=== PATIENT | female | born 1935 | race Two or more races ===

== ENCOUNTER 2016-10-20 08:28 | Emergency (ER) | payer MEDICARE ==
[~2016-10-20] VITALS: Ht 149.9 cm; Wt 63.5 kg
--- NOTE | 2016-10-20 09:29 | RAD ---
Indication fall. Pain. AP oblique and lateral views of the right ankle were obtained. Similar AP oblique and lateral views of the right foot were also obtained. Views of the ankle show no acute finding. 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 Views of the foot are negative with regards to any acute bony finding. IMPRESSION: No acute finding seen involving the plantar ankle. Focus of osteonecrosis associated with the talus
[2016-10-20 09:45] VITALS: BP 151/72
[2016-10-20] MEDS ORDERED: ACET325T9 PO (09:46)
--- NOTE | 2016-10-20 09:46 | PHYS DOC ---
Past Medical History Past Medical History: CAD, Diabetes-Type II, Hypertension, [place] Past Surgical History: Coronary Bypass Surgery, Hysterectomy Alcohol Use: None Drug Use: None Adult General Chief Complaint Chief Complaint: ANKLE PROBLEM HPI HPI Patient is a pleasant 81-year-old female with multiple medical problems who presents with ankle pain that began yesterday after a fall from standing. She was walking down a set of stairs and at the third to the last while walking in socks she slipped and fell landing on her bottom but twisting her right ankle. At this time she had no pain or swelling. As the day went on her pain has increased. She has no laxity within the joint itself no knee pain no hip pain no other injuries. Patient said the pain is dull she is afraid to take anything other than aspirin that she's been told that all the medication will affect her aspirin affect on platelets. She is able to walk without issue she has no numbness and tingling in the ankle no prior injuries to this ankle throughout. Review of Systems Review of Systems Constitutional: Denies fever or chills [] Eyes: Denies change in visual acuity, redness, or eye pain [] HENT: Denies nasal congestion or sore throat [] Respiratory: Denies cough or shortness of breath [] Cardiovascular: No additional information not addressed in HPI [] GI: Denies abdominal pain, nausea, vomiting, bloody stools or diarrhea [] : Denies dysuria or hematuria [] Musculoskeletal: Complains only of right ankle and foot pain. Integument: Denies rash or skin lesions [] Neurologic: Denies headache, focal weakness or sensory changes [] Endocrine: Denies polyuria or polydipsia [] Allergies Allergies Allergies Coded Allergies Type Severity Reaction Last Updated Verified penicillin Allergy Intermediate unknown 12/23/14 No Physical Exam Physical Exam Vital signs recorded on the chart patient is mildly hypertensive. Constitutional: Well developed, well nourished, no acute distress, non-toxic appearance. [] Cardiovascular:Heart rate regular rhythm, no murmur [] Lungs & Thorax: Bilateral breath sounds clear to auscultation [] Skin: Warm, dry, no erythema, no rash. [] Extremities: He has some mild tenderness to palpation over the lateral aspect of the fifth metatarsal as well as over the lateral malleolus. There is no soft tissue swelling she has an anterior posterior draw tests are negative. Patient is no apparent laxity within the joint of the ankle. Patient has no deformity she has brisk capillary refill +2 brisk peripheral pulses at the dorsalis pedis and posterior tibialis on the right ankle. Normal sensation to light touch over the ankle itself. Neurologic: Alert and oriented X 3, normal motor function, normal sensory function, no focal deficits noted. [] Psychologic: Affect normal, judgement normal, mood normal. [] Current Patient Data Vital Signs Vital Signs Date Time Temp Pulse Resp B/P (MAP) Pulse Ox O2 Delivery O2 Flow Rate FiO2 10/20/16 08:53 98.2 77 18 164/74 (104) 98 Room Air 98.2 EKG EKG [] Radiology/Procedures Radiology/Procedures [] Review ankle film 3 view foot film 0900AM 10/20/[address] Cruz demonstrated no occult fracture no subcutaneous air no soft tissue swelling. Patient has osteoporosis is noted in the bone density of the foot itself. But no occult injury. Course & Med Decision Making Course & Med Decision Making Pertinent Labs and Imaging studies reviewed. (See chart for details) Is separate from a grade 1 ankle sprain and contusion to the lateral aspect of her foot. There is no obvious signs of fracture. Patient I went over the results of follow-up plan. She is reluctant to take Tylenol. She's been instructed to take and how to take it and that a lot affect her building use aspirin to protect her heart. [] Dragon Disclaimer Dragon Disclaimer This electronic medical record was generated, in whole or in part, using a voice recognition dictation system. Departure Departure Impression: Primary Impression: Ankle sprain Additional Impression: Contusion of foot, right Disposition: 01 HOME, SELF-CARE Condition: IMPROVED Referrals: LAN TURCIOS MD (PCP) Patient Instructions: Ankle Sprain Additional Instructions: Please return for any new or increasing symptoms or feel any question concerns. Scripts Acetaminophen (TYLENOL) 325 Mg Tablet 1-2 TAB PO QID, #60 TAB 2 Refills Prov: MARY CRUZ MD 10/20/16 Problem Qualifiers MARY CRUZ MD Oct 20, 2016 09:46
== END 2016-10-20 09:53 | disposition home or self-care (01) ==
LOC: ER 08:28
DX: S93.401A Sprain of unspecified ligament of right ankle, initial encounter (principal); S90.31XA Contusion of right foot, initial encounter; I10 Essential (primary) hypertension; E11.9 Type 2 diabetes mellitus without complications; I25.10 Atherosclerotic heart disease of native coronary artery without angina pectoris; I25.2 Old myocardial infarction; Z90.710 Acquired absence of both cervix and uterus; Z95.1 Presence of aortocoronary bypass graft; Z88.0 Allergy status to penicillin; W10.9XXA Fall (on) (from) unspecified stairs and steps, initial encounter; Y93.89 Activity, other specified; Y99.8 Other external cause status; Y92.89 Other specified places as the place of occurrence of the external cause
CPT/HCPCS: 73610; 73630; 99284

== ENCOUNTER → 2019-05-23 | Outpatient (CLI) | payer OTHER ==
[~2019-05-23] MED LIST: ACET325T9 PO
--- NOTE | 2019-05-25 12:55 | RAD ---
History: Routine Screening. Technique: Bilateral digital mammographic routine views were obtained with 2-D and 3-D technique including use of CAD - computer aided detection. Comparison: 05/23/2018, 05/23/2017.. Findings: Breast Tissue Density A : The breast tissue is predominately fatty replaced. There are no suspicious masses, microcalcifications or areas of architectural distortion. Impression: Negative mammogram. BI-RADS Category 1: Negative. Normal interval followup. . A mammogram does not have 100% sensitivity and therefore a negative imaging study should not delay further work up of a suspicious abnormality. The patient will receive a letter with the results in the mail. Patient information is entered into the reminder system with a target due date for the next screening mammogram. The patient will receive a reminder. "Our facility is accredited by the [employer] Mammography Program." BI-RADS 1 -- negative findings (within normal)
== END | disposition home or self-care (01) ==
LOC: MAMMO 09:42
PROVIDERS: ATTEND Family Medicine
DX: Z12.31 Encounter for screening mammogram for malignant neoplasm of breast (principal)
CPT/HCPCS: 77063; 77067

== ENCOUNTER → 2020-05-28 | Outpatient (CLI) | payer OTHER ==
--- NOTE | 2020-05-29 17:39 | RAD ---
DATE: 05/28/2020 10:27 AM EXAM: MAMMO JUAN SCREENING BILATERAL HISTORY: Screening COMPARISON: 05/23/2019 Bilateral CC and MLO views of the breasts were performed. Bilateral breast tomosynthesis was performed in CC and MLO projections. This study was interpreted with the benefit of Computerized Aided Detection (CAD). FINDINGS: Breast Density: FATTY The Breast Parenchyma is primarily fatty replaced. Breast parenchyma level density A. No suspicious masses, microcalcifications or architectural distortion is present to suggest malignancy in either breast. The visualized axillae are unremarkable. IMPRESSION: No mammographic evidence of malignancy. BI-RADS CATEGORY: 1 NEGATIVE RECOMMENDED FOLLOW-UP: 12M 12 MONTH FOLLOW-UP Annual screening mammography is recommended, unless clinically indicated sooner based on symptoms or change in physical exam. PQRS compliance statement: Patient information was entered into a reminder system with a target due date for the next mammogram. Mammography is a sensitive method for finding small breast cancers, but it does not detect them all and is not a substitute for careful clinical examination. A negative mammogram does not negate a clinically suspicious finding and should not result in delay in biopsying a clinically suspicious abnormality. "Our facility is accredited by the [employer] Mammography Program."
== END ==
LOC: MAMMO 10:05
PROVIDERS: ATTEND Family Medicine
DX: Z12.31 Encounter for screening mammogram for malignant neoplasm of breast (principal)
CPT/HCPCS: 77063; 77067

== ENCOUNTER → 2020-06-19 | Outpatient (CLI) | payer OTHER ==
--- NOTE | 2020-06-19 16:57 | CARD ---
MR#: [id number] Date of Study: 06/19/2020 Ordering Physician: PHILOMENA FAGAN, Referring Physician: PHILOMENA FAGAN, Tech: Ruthann Espinoza [facility] APPROVED REPORT EXAM: Two-dimensional and M-mode echocardiogram with Doppler and color Doppler. Other Information Quality : AverageHR: 73bpm Rhythm : NSR INDICATION CAD RISK FACTORS Hypertension Obesity Hyperlipidemia 2D DIMENSIONS RVDd2.8 (2.9-3.5cm)Left Atrium(2D)3.9 (1.6-4.0cm) IVSd1.1 (0.7-1.1cm)Aortic Root(2D)3.2 (2.0-3.7cm) LVDd3.5 (3.9-5.9cm)LVOT Diameter1.8 (1.8-2.4cm) PWd1.0 (0.7-1.1cm)LVDs2.2 (2.5-4.0cm) FS (%) 35.9 %SV32.9 ml LVEF(%)66.5 (>50%) Aortic Valve AoV Peak Greg.104.1cm/sAoV VTI26.6cm AO Peak GR.4.3mmHgLVOT Peak Greg.102.4cm/s AO Mean GR.2mmHgAVA (VMAX)2.56cm2 Mitral Valve MV E Eykjsbam85.9cm/sMV DECEL [id number] MV A Uwtfliyk768.0cm/sE/A Ratio0.8 Tricuspid Valve TR P. Kpagpgot445es/sTR Peak Gr.29mmHg Pulmonary Vein S1 Wrekyzyp54.8cm/sD2 Dmqucczj36.5cm/s PVa [id number] LEFT VENTRICLE The left ventricle is normal size. There is borderline concentric left ventricular hypertrophy. The l eft ventricular systolic function is normal and the ejection fraction is within normal range. Estima eliecer ejection fraction 55-60%. There is normal LV segmental wall motion. Transmitral Doppler flow camille geneva is Grade I-abnormal relaxation pattern. RIGHT VENTRICLE The right ventricle is normal size. There is normal right ventricular wall thickness. The right ventr icular systolic function is normal. ATRIA The left atrium size is normal. The right atrium size is normal. The interatrial septum is intact wit h no evidence for an atrial septal defect or patent foramen ovale as noted on 2-D or Doppler imaging. AORTIC VALVE The aortic valve is normal in structure and function. Doppler and Color Flow revealed no significant aortic regurgitation. There is no significant aortic valvular stenosis. MITRAL VALVE The mitral valve is normal in structure and function. There is no evidence of mitral valve prolapse. There is no mitral valve stenosis. Doppler and Color-flow revealed trace to mild mitral regurgitation . TRICUSPID VALVE The tricuspid valve is normal in structure and function. Doppler and Color Flow revealed mild tricusp id regurgitation. Estimated PAP 32 mmHg. There is no tricuspid valve stenosis. PULMONIC VALVE The pulmonary valve is normal in structure and function. Doppler and Color Flow revealed no pulmonic valvular regurgitation. GREAT VESSELS The aortic root is normal in size. The ascending aorta is normal in size. The IVC is normal in size a nd collapses >50% with inspiration. PERICARDIAL EFFUSION There is no evidence of significant pericardial effusion. Critical Notification Critical Value: No <Conclusion> The left ventricle is normal size. The left ventricular systolic function is normal and the ejection fraction is within normal range. Estimated ejection fraction 55-60%. There is borderline concentric left ventricular hypertrophy. Doppler and Color Flow revealed no significant aortic regurgitation. There is no significant aortic valvular stenosis. Doppler and Color-flow revealed trace to mild mitral regurgitation. Doppler and Color Flow revealed mild tricuspid regurgitation. Estimated PAP 32 mmHg. Signed by : Philomena Fagan MD Electronically Approved : 06/19/2020 16:56:53
== END ==
LOC: ECHO 10:26
PROVIDERS: ATTEND Internal Medicine Cardiovascular Disease
DX: I08.1 Rheumatic disorders of both mitral and tricuspid valves (principal); I25.10 Atherosclerotic heart disease of native coronary artery without angina pectoris
CPT/HCPCS: 93306

== ENCOUNTER → 2021-03-16 | Outpatient (CLI) | payer OTHER ==
--- NOTE | 2021-03-16 18:47 | RAD ---
RENAL ULTRASOUND with renal Doppler: Reason for examination: DECREASED GFR and increased creatinine. COMPARISON: None available. TECHNIQUE: Ultrasound examination of the bilateral kidneys and urinary bladder was performed with gra yscale imaging, color-flow imaging and spectral analysis.. FINDINGS: Right kidney measures 10 x 4.6 x 4.5 cm in greatest dimension. There is cortical thinning. There is a 2.3 cm cyst inferior medially at the right kidney. No hydronephrosis is present. The left kidney measures 10.1 x 3.9 x 4.5 cm in greatest dimension with cortical thinning. No mass or hydronephrosis is evident. No abnormality seen at the bladder. The abdominal aorta shows velocity 239 cm/s. The proximal right renal artery shows a velocity 57 cm/s with a resistive index of 0.75. The mid right renal artery shows a velocity of 71 cm/s with a resistive index of 0.8. The distal right renal artery shows a velocity of 83 cm/s with a resistive index of 0.8. The proximal left renal artery shows a flow velocity of 91 cm/s with resistive index of 0.86. The mid left renal artery shows a flow velocity of 75 cm/s with a resistive index of 0.83. The distal left renal artery shows a flow velocity 63 cm/s with a resistive index of 0.8. Right renal artery to aortic ratio is 0.35. Left renal artery to aortic ratio is 0.38. IMPRESSION: Renal cortical thinning bilaterally. 2.3 cm cyst lower pole of the right kidney. No hydronephrosis. No evidence of renal artery stenosis evident. Electronically signed by: Deborah Paz MD (03/16/2021 6:44 PM) [place] [id number]
== END ==
LOC: US 08:35
PROVIDERS: ATTEND Family Medicine
DX: N28.1 Cyst of kidney, acquired (principal); N26.1 Atrophy of kidney (terminal)
CPT/HCPCS: 76770; 93975

== ENCOUNTER → 2021-06-01 | Outpatient (CLI) | payer OTHER ==
--- NOTE | 2021-06-01 16:15 | RAD ---
Bilateral digital screening 2-D and 3-D (digital breast tomosynthesis) mammogram: Reason for examination: Routine screening. Comparison: Mammograms from 05/28/2020, 05/23/2019, and 05/21/2016. Interpretation was made with the benefit of CAD. FINDINGS: Breast density: Category B. There are scattered areas of fibroglandular density. No suspicious breast mass, malignant appearing calcifications, or architectural distortion is seen. T here is a stable small group of benign calcifications in the far posterior central/6:00 region of the right breast. There are unchanged tiny benign masses in the inner left breast. IMPRESSION: No evidence of malignancy. Assessment: BI-RADS 2. Benign findings. Recommendation: Routine screening mammograms. The patient will receive a letter with the results in the mail. Patient information will be entered i nto the mammography reminder system with a target recall date for the next mammogram. A reminder mart er will be generated. Electronically signed by: Keri Myers MD (06/01/2021 4:13 PM) [id number]
== END ==
LOC: MAMMO 14:29
PROVIDERS: ATTEND Family Medicine
DX: Z12.31 Encounter for screening mammogram for malignant neoplasm of breast (principal)
CPT/HCPCS: 77063; 77067